=== PATIENT | female | born 2000 | race Caucasian/White ===

== ENCOUNTER 2019-09-13 13:59 | Emergency (ER) | payer OTHER ==
[~2019-09-13] VITALS: Ht 170.2 cm; Wt 60.8 kg
[2019-09-13] MEDS ORDERED: prenatal (14:07)
[2019-09-13] MEDS ORDERED: NS 1,000 ML IV ONE (14:30)
[2019-09-13] MEDS ORDERED: METOCLOPRAMIDE INJ 10MG/2ML VIAL (J2765) IV ONE (14:30)
[2019-09-13 14:57] LABS: BASO % 0.2 % (0.0-1.0); EOS % 0.1 % (0.0-3.0); HEMATOCRIT 35.5 % (36.0-47.0); HEMOGLOBIN 12.1 g/dl (12.0-15.5); LYMPH # 1.5 10^3/uL (1.5-5.0); LYMPH % 13.1 % (24.0-44.0); MEAN CORPUSCULAR HEMOGLOBIN 29.7 pg (27.0-33.0); MEAN CORPUSCULAR HGB CONC 34.1 g/dl (32.0-36.5); MEAN CORPUSCULAR VOLUME 87.2 fl (80.0-96.0); MONO # 0.5 10^3/uL (0.0-0.8); MONO % 4.3 % (0.0-5.0); NEUTROPHILS # 9.1 10^3/uL (1.5-8.5); NEUTROPHILS % 82.1 % (36.0-66.0); PLATELET COUNT, AUTOMATED 192 10^3/uL (150-450); RED BLOOD COUNT 4.07 10^6/uL (4.00-5.40)
--- NOTE | 2019-09-13 15:19 | REP ---
FIRST TRIMESTER ULTRASOUND: Real-time sonographic evaluation of the gravid uterus is performed. There is a single living intrauterine gestation, estimated gestational age is 8 weeks 6 days based on a crown-rump length of 22 mm, EDC 04/18/2020. heart rate 160 beats per minute. There is no subchorionic hemorrhage. Hypoechoic area in the right ovary measures 1.9 cm in diameter probably representing a corpus luteum. There is no right ovarian torsion. Left ovary is not visualized. Electronically Signed by Cesario Hoover MD 09/13/2019 06:21 P
[2019-09-13] MEDS ORDERED: ONDANSETRON 4MG/2ML VIAL (J2405) IV ONE (15:30)
[2019-09-13] MEDS ORDERED: ONDA4TAB6 PO (15:59)
[2019-09-13] MEDS ORDERED: REGL10TA6 PO (15:59)
[2019-09-13 16:15] VITALS: BP 125/72
== END 2019-09-13 16:17 | disposition home or self-care (01) ==
LOC: M ED 13:59
DX: O21.0 Mild hyperemesis gravidarum (principal); Z3A.08 8 weeks gestation of pregnancy; Z79.899 Other long term (current) drug therapy
CPT/HCPCS: 76801; 80047; 84702; 85025; 93976; 96361; 96374; 96375; 99284; J2405; J2765

== ENCOUNTER 2020-04-20 07:00 | Inpatient (IN) | payer OTHER ==
[2020-04-20] VITALS (20 sets, daily range): BP systolic 111–137; BP diastolic 57–80
[~2020-04-20] VITALS: Ht 170.2 cm; Wt 82.6 kg
[~2020-04-20 07:00] MED LIST: ONDA4TAB6 PO; REGL10TA6 PO; prenatal
[2020-04-20] MEDS ORDERED: PENICILLIN G POTASSIUM IV 5 MU in D5W MINI-BAG PLUS 100 ML IV STA (08:06)
[2020-04-20] MEDS ORDERED: LACTATED RINGER'S 1000 ML IV ONE (08:15)
[2020-04-20 08:25] LABS: HEMATOCRIT 33.8 % (36.0-47.0); HEMOGLOBIN 11.4 g/dl (12.0-15.5); MEAN CORPUSCULAR HEMOGLOBIN 31.1 pg (27.0-33.0); MEAN CORPUSCULAR HGB CONC 33.7 g/dl (32.0-36.5); MEAN CORPUSCULAR VOLUME 92.3 fl (80.0-96.0); PLATELET COUNT, AUTOMATED 160 10^3/uL (150-450); RED BLOOD COUNT 3.66 10^6/uL (4.00-5.40); WHITE BLOOD COUNT 9.5 10^3/uL (4.0-10.0)
--- NOTE | 2020-04-20 08:38 | HPEPDOC ---
Obstetrical History & Physical General Date of Admission Apr 20, 2020 at 07:41 Primary Care Physician: Dillan Raya MD History of Present Illness 04/20/2020 19 YO AT 39,5 WEEKS SROM CLEAR LIQUOR MILD CONTRACTIONS .RISK FACTORS ANEMIA GBS POSITIVE Chief Complaint: Rupture of membranes Information Provided By: Patient Age: 19 : 1 Term: 0 Care Care: Good Care Dating Final EDC: Apr 22, 2020 Final EDC for Daily Update: Apr 22, 2020 Final EDC by: 1st trimester (US) LMP: Jul 17, 2019 1st Trimester Date: Sep 13, 2019 Weeks + Days: 8.6 Estimated Date of Confinement: Apr 22, 2020 Past Medical History Past Obstetrical History : Past Obstetrical History: Primgravida [employer] History: No pertinent history Past Medical History Surgical History: Denies/None Family History Significant Family History: No pertinent family hx Social History Marital Status: Family situation: Spouse/partner home Psychosocial History: No pertinent psych hx * Smoker: non-smoker Alcohol: Denies Drugs: denies Abuse Violence Screening Have you been hit/kicked/slapp: No Have you been sexually assault: No Imunizations Tdap status: current Influenza Status: current Allergies Coded Allergies: No Known Allergies (Unverified , 04/20/20) Medications Miscellaneous Medications [ ] Physical Examination Physical Examination GENERAL: Alert and oriented times three. BREAST: . ABDOMEN: Gravid and non-tender to touch. FETUS: Is vertex (VTX) by sterile vaginal examination (SVE), fetus is vertex (VTX) by Eligio. HEART RATE: Regular rate and rhythm. LUNGS: Clear to auscultation NO WHEEZES NO RHONCHI EXTREMITIES: No edema. No clonus. Vital Signs/I&O Vital Signs Date Time Temp Pulse Resp B/P (MAP) Pulse Ox O2 Delivery O2 Flow Rate FiO2 04/20/20 07:16 97.7 78 18 120/70 (87) Laboratory Data 24H LABS Laboratory Tests 2 04/20/20 08:06: Serology Scanned Report Hepatitis B Testing Pertinent Laboratoy Data Blood Type: A+ RBC Antibody Screen: Negative HIV: Negative Hepatitis B: Negative Rapid Plasma Reagin: Nonreactive Rubella: Immune Varicella: Immune Chlamydia/Gonorrhea: Negative Group B Streptococcus: Positive Cystic Fibrosis: Negative Anatomy Ultrasound Placenta Location: Anterior Normal Anatomy: Yes Steroid Therapy Steroid Therapy: No Vaginal Examination Dilation: 3 cm Effacement: 60% Station: -3 Cervical Consistency: Soft Cervical Position: Posterior Presentation: Cephalic presentation Assessment Variability: Moderate Accelerations: Positive Decelerations: None Tocometer Contractions: Yes Frequency: every 1-5 min. Duration: less than 60 seconds Strength: palpated as mild Assessment/Plan Assessment 19 Y.O -year-old (G1 para (P0 at 39.5 weeks by 8.6 -week ultrasound. Presents to Labor and Delivery Plan Admit and orient. Pals Nurse and consent. Diet: REGULAR Group B Streptococcus (GBS POSITIVE Labs and intravenous (IV) per unit protocol. Counseled on Pitocin ARGUMENTATION Lactated Ringers (LR): Bolus 1000mL, then at 125 mL/hr. Anticipate [normal spontaneous delivery ()]. C-S as appropriate. Labor and Delivery Counseling 04/20/2020 EVALUATION CONFIRM SROM CLEAR POSITIVE NITRAZINE . PLAN OF CARE ANTIBIOTICS FOR GBS POSSIBLE REQUIRE ARGUMENTATION OF CONTRACTIONS RISK OF PITOCIN IS TACHYSYSTOLE, UTERUS RUPTURE NRFHT EMERGENCY CS ADMISSION NICU RISK CS HEMORRHAGE INFECTION PERFORATION REOPERATION REMOTE BLOOD TRANSFUSION REMOTE HYSTERECTOMY LIFE THREATENING BLEEDING RISK OF LACERATION HEMATOMA , SCRATCHES INTRACRANIAL BLEED , RISK VAGINAL DELIVERY ARE EPISIOTOMY, LACERATION TO BOWEL BLADDER SPHINCTER EXPRESSED UNDERSTANDING SAFE TO PROCEED CATEGORY 1 STRIP Dillan Raya MD Apr 20, 2020 08:36
[2020-04-20] MEDS ORDERED: MAPA500T2 PO (08:46)
[2020-04-20] MEDS ORDERED: OXYTOCIN DRIP 30 UNITS in IV 1 EA IV SCH (10:00)
[2020-04-20] MEDS ORDERED: BUTORPHANOL 2 MG/ML INJ (J0595) IV ONE (10:00)
[2020-04-20] MEDS ORDERED: PROMETHAZINE INJ 25 MG/ML VIAL (J2550) IV ONE (10:00)
[2020-04-20] MEDS: CALCIUM CARBONATE 500 MG CHEW U/D PO PRN ×2 (10:12→20:31)
--- NOTE | 2020-04-20 10:30 | IPNPDOC ---
Obstetrical Progress Note Date of Service Apr 20, 2020 Subjective Patient states pain with contractions, feeling tired adn having increased heartburn. Requesting pain medication and TUMS Objective Vital Signs Date Time Temp Pulse Resp B/P (MAP) Pulse Ox O2 Delivery O2 Flow Rate FiO2 04/20/20 07:16 97.7 78 18 120/70 (87) Assessment Heart Rate (FHR): 125 Variability: Moderate Accelerations: Positive Decelerations: None Heart Rate Tracing: Category I Tocometer Contractions: Yes Frequency: irregular (patient counseled on pitocin augmentation if contractions do not increase in strength and frequency.) Duration: greater than 60 seconds Strength: palpated as mild Sterile Vaginal Examination Postion/Presentation: Cephalic presentation Assessment and Plan Age: 19 : 1 Term: 0 Pre-term: 0 Abortions: 0 Livin EGA at Admission: 39 (+5) Status: Reassuring Group B Streptococcus: Positive Anticipate: Vaginal Delivery Additional Comments A:19yo lucas [id number] @39+5, complicated by gestational anemia, A+, GBS+, PROM clear at term P:lr@125ml/hr, continuous efm x2, continue gbs prophylaxis per protocol, monitor for change in or maternal status, 2mg stadol iv x1, 25mg phenergan iv x1, 1000mg tums chew po prn heartburn, consider pitocin augmentation at 6hr ROM if not actively laboring, evaluate for change as indicated, anticipate vaginal delivery MACK KATZ CNM Apr 20, 2020 10:30
[2020-04-20] MEDS: LR 1,000 ML IV SCH ×2 (10:54→14:34)
[2020-04-20] MEDS: PENICILLIN G POTASSIUM IV 2.5 MU in IV 1 EA IV SCH ×3 (13:25→20:00)
--- NOTE | 2020-04-20 14:36 | IPNPDOC ---
Obstetrical Progress Note Date of Service Apr 20, 2020 Subjective patient states minimal sleep on iv medications, states continued discomfort with contractions Objective Vital Signs Date Time Temp Pulse Resp B/P (MAP) Pulse Ox O2 Delivery O2 Flow Rate FiO2 04/20/20 12:47 98.9 85 16 121/73 (89) Assessment Heart Rate (FHR): 135 Variability: Moderate Accelerations: Positive Decelerations: None Heart Rate Tracing: Category I Tocometer Contractions: Yes (q6-7 min) Frequency: regular Duration: greater than 60 seconds Strength: palpated as moderate Assessment and Plan Age: 20 : 1 Term: 0 Pre-term: 0 Abortions: 0 Livin EGA at Admission: 39 (+5) Status: Reassuring Group B Streptococcus: Positive Anticipate: Vaginal Delivery Additional Comments 20yo lucas [id number] @39+5, A+, GBS+, PROM clear lr @125 ml/hr, continuous efm x2, continue GBS prophylaxis, initiate pitocin augmentation and titrate per protocol, monitor for change in pr maternal status, evaluate for change as indicated, anticipate vaginal delivery MACK KATZ CNM Apr 20, 2020 14:36
[2020-04-20] MEDS ORDERED: FENTANYL 2MCG/ML ROPIVACAINE 0.2% IN 0.9% NACL 100ML IVBAG As Ordered ONE (16:10)
[2020-04-20] MEDS ORDERED: diphenhydrAMINE 50MG/ML VIAL (J1200) IV PRN ×2 (17:45→21:08)
[2020-04-20] MEDS ORDERED: EPIDURAL/PCA KEYS XX PRN (17:45)
[2020-04-20] MEDS: FENTANYL/ROPIVACAINE/NACL BAG 100 ML EPIDURAL SCH (17:45)
[2020-04-20] MEDS ORDERED: EPIDURAL COMMENT XX SCH (17:45)
[2020-04-20] MEDS ORDERED: ONDANSETRON 4MG/2ML VIAL IV PRN ×3 (17:45→22:45)
[2020-04-20] MEDS ORDERED: ePHEDrine SULFATE 25 MG/5 ML(5MG/ML) SYRINGE IV PRN (17:45)
[2020-04-20] MEDS ORDERED: NALOXONE INJ 0.4MG/1ML VIAL (J2310 PER 1MG) IV PRN ×3 (17:45→21:08)
[2020-04-20] MEDS ORDERED: REFRIGERATOR IV KEYS XX PRN (17:45)
--- NOTE | 2020-04-20 18:52 | IPNPDOC ---
Obstetrical Progress Note Date of Service Apr 20, 2020 Subjective accepting care of this 20 yo G1 who was admitted this morning after SROM at 3 AM. She is in bed comfortable with epidural in place. FHT: 150, Min to moderate variabiliy, +accels, -Decels---cat I tracing SVE: 9/Complete/0 [place]: 4-5/10, pit @ 6 A/p 20 yo G1@ 39+5, BGS POS; adequately treated, PROM @ 0300. Now in active labor. Overal cat I Tracing with intermitted cat II due to minimal variability, overall reassuring. will continue induction of labor with pitocin per L&D protocol. Anticipate . Objective Vital Signs Date Time Temp Pulse Resp B/P (MAP) Pulse Ox O2 Delivery O2 Flow Rate FiO2 04/20/20 17:06 72 18 114/63 (80) 04/20/20 16:57 98.8 SHABBIR POWELL MD Apr 20, 2020 18:33
[2020-04-20] MEDS ORDERED: BICITRA 30ML SOLN UDC As Ordered ONE (20:26)
[2020-04-20] MEDS ORDERED: ceFAZolin 2 GM/D5W 50 ML IV BAG (J0690 PER 500MG) As Ordered ONE (20:26)
[2020-04-20] MEDS ORDERED: AZITHROMYCIN INJ 500MG VIAL (J0456 PER 500MG) As Ordered ONE (20:27)
[2020-04-20] MEDS ORDERED: MORPHINE PRES-FREE INJ 10 MG/10 ML VIAL (J2274) As Ordered ONE (20:29)
[2020-04-20] MEDS ORDERED: OXYTOCIN INJ 10 UNITS/ML VIAL (J2590) As Ordered ONE (20:31)
[2020-04-20] MEDS ORDERED: LIDOCAINE 2% W/EPINEPHRINE 20ML VIAL **PRES FREE As Ordered ONE (20:34)
[2020-04-20] MEDS ORDERED: ONDANSETRON 4MG/2ML VIAL As Ordered ONE (20:58)
[2020-04-20] MEDS ORDERED: METOCLOPRAMIDE INJ 10MG/2ML VIAL (J2765 PER 1) IV PRN ×2 (21:08→22:45)
[2020-04-20] MEDS ORDERED: NALBUPHINE HCL 10 MG/ML AMP (J2300) IV PRN (21:08)
[2020-04-20] MEDS ORDERED: dexameTHASONE 4 MG/ML 1ML VIAL (J1100 PER 1MG) As Ordered ONE (21:20)
[2020-04-20] MEDS ORDERED: PHENYLephrine HCL 500 MCG/5 ML (100MCG/ML) SYRINGE (J2370) As Ordered ONE (21:30)
[2020-04-20] MEDS ORDERED: KETOROLAC 60MG 2ML VIAL As Ordered ONE (21:49)
[2020-04-20] MEDS ORDERED: OXYTOCIN 30 UNITS IN 0.9% NaCl 500ML IV BAG (J2590) As Ordered ONE (21:49)
[2020-04-20] MEDS ORDERED: ONDANSETRON 4 MG TAB PO PRN (22:15)
[2020-04-20] MEDS ORDERED: MOM 30ML SUSPENSION UDC PO PRN (22:15)
[2020-04-20] MEDS ORDERED: ceFAZolin SOD 2 GM in IV 1 EA IV ONE (22:15)
[2020-04-20] MEDS ORDERED: BICITRA 30ML SOLN UDC PO ONE (22:15)
[2020-04-20] MEDS ORDERED: AZITHROMYCIN INJ 500 MG, VIAL MATE ADAPTER 1 EACH in D5W 250 ML IV ONE (22:15)
[2020-04-20] MEDS ORDERED: ANUSOL HC CREAM 30GM TOP PRN (22:15)
[2020-04-20] MEDS ORDERED: ACETAMINOPHEN 500 MG TAB PO PRN (22:15)
--- NOTE | 2020-04-20 22:43 | DNPDOC ---
[facility] Delivery Note Delivery Note DATE OF DELIVERY: 04/20/2020 PREDELIVERY DIAGNOSIS: 39-5/7 weeks' gestation and induction of labor, breech presentation, GBS positive POST DELIVERY DIAGNOSIS: Delivered, breech presentation PROCEDURE: section RECREATION ATTENDANT SUPERVISOR: Dr. Shabbir Powell ANESTHESIA: Epidural. ESTIMATED BLOOD LOSS: 600 mL. FINDINGS: 7pound 8 ounce female , Score 8/9, breech DELIVERY SUMMARY: 20 yo G1 @39+5 who was admitted for PROM and found to be breech presentation when she was complete. Short OP REPORT: Pfannenstiel incision, lower uterine transverse incision, delivery of female breech female infant with apgars of 8/9. manual placenta delivery. hysterotomy closure in two layers with 0-monocryl. fascia closure with 0-vicryl. subc closure with 2-0 vicryl running, skin clsoure with 3-0 monocryl on a kip needle. opti-foam dressing used. patient tolerated procedure without issues. SHABBIR POWELL MD Apr 20, 2020 22:34
[2020-04-20] MEDS ORDERED: LR 1,000 ML IV SCH (22:45)
[2020-04-20] MEDS ORDERED: fentaNYL 100 MCG/2 ML INJECTION (J3010) IV PRN (22:45)
[2020-04-20] MEDS ORDERED: MEPERIDINE INJ 25 MG/ML VIAL (J2175) IV PRN (22:45)
[2020-04-20] MEDS ORDERED: PERCOCET 5MG/325MG TAB PO PRN (22:45)
--- NOTE | 2020-04-20 23:18 | ROOPDOC ---
[facility] Report Of Operation Report of Operation DATE OF PROCEDURE: 04/20/20 PREPROCEDURE DIAGNOSES: BREECH PRESENTATION, PROM, GBS POSITIVE POSTPROCEDURE DIAGNOSES: SAME ABOVE. PROCEDURE: PRIMARY LOW TRANSVERSE SECTION. SURGEON: SHABBIR POWELL MD JOCKEY VALET: INDU SANTAMARIA RN ANESTHESIA: RIA HERRING CRNA. ESTIMATED BLOOD LOSS: Approximately 600 mL. COMPLICATIONS: NONE. REMARKS: NONE. PROCEDURE NOTE: DELIVERY SUMMARY: 20 yo G1 @39+5 who was admitted for PROM and found to be breech presentation when she was complete. Short OP REPORT: Pfannenstiel incision, lower uterine transverse incision, delivery of female breech female infant with apgars of 8/9. manual placenta delivery. hysterotomy closure in two layers with 0-monocryl. fascia closure with 0-vicryl. subc closure with 2-0 vicryl running, skin clsoure with 3-0 monocryl on a kip needle. opti-foam dressing used. patient tolerated procedure without issues. DESCRIPTION OF PROCEDURE: After proper consent was obtained, patient was taked to the OR and epidural anesthesia was found to be adequate. she was then prepped and draped in sterile fashion in the dorsosupine position with left tilt. A pfannenstiel skin incision was then made with a scalp and carried to the fascia. the fascia was incised in the midline and the incision was extended laterally bluntly. the superior aspect of the fascia was grasped with tano clamps, elevated amd the underlying rectus muscle dissected off bluntly. the lower aspect of the fascia was also grasped and the rectus muscles dissected off bluntly. The rectus muscles were then in the midline, the peritoneum identified and entered bluntly. the peritoneum incision was extended superiorly and laterally by manual traction with good visualization of the bladder. The Mobius retractor was then inserted and a bladder flap was made. the lower ut erine segment was then incised in a transverse fashion with the scalpel and the incision was extended bluntly superiorly with manual traction. the infant's buttocks ( presenting part) was elevated to the the hysterotomy and delivered and using the penard maneuver legs were delivered. the corps was placed in sterile towel and with the loveset/ penard maneuver delivered the arms. mauriceau smellie veit maneuver was then used to deliver the head. the cord was cut and female was then handed to the NICU team with apgars of 8/9 and 7lb8oz. The placenta was then delivery manually and the hysterotomy closed in two layers with o-Monocryl. great hemostasis was obtained. the uterine was returned in the abdomen and the gutters cleaned using moist laps. the Mobius retractor was then removed and again hemostasis checked and fount to be satisfactory. Fascia was then closed with 0-vicryl and running fashion. the subc was closed with 2-0 vicryl in a running fashion. the skin was then closed with 3-0 monocryl on a kip needle. the opt foam was used for dressing. Patient tolerated procedure well and was taken to the PACU in stable condition. SHABBIR POWELL MD Apr 20, 2020 23:18
--- NOTE | 2020-04-20 23:25 | IPNPDOC ---
Obstetrical Progress Note Date of Service Apr 20, 2020 Subjective late entry due to patient care patient seen @ 1945 to room for assessment as patient is feeling more pelvic pressure. on exam found to be c/c/+1, found to be breech via US, Head to fundus. Discussed with patient that I recommand C/D for breech presentation. she expressed understanding and agrees with plan. will order 2g Ancef and 500mg azithromycin medical social consultant to the OR Objective Vital Signs Date Time Temp Pulse Resp B/P (MAP) Pulse Ox O2 Delivery O2 Flow Rate FiO2 04/20/20 23:16 70 95 04/20/20 23:15 120/56 (77) 04/20/20 22:42 98.9 04/20/20 22:08 16 Room Air SHABBIR POWELL MD Apr 20, 2020 23:25
[2020-04-21] VITALS (9 sets, daily range): BP systolic 112–127; BP diastolic 57–68
[2020-04-21] MEDS: oxyCODONE 5MG TAB PO PRN ×4 (02:16→22:37)
[2020-04-21] MEDS: KETOROLAC 30 MG/ML 1ML VIAL IV SCH ×3 (04:03→15:50)
[2020-04-21] MEDS: LR 1,000 ML IV SCH ×2 (07:29→15:49)
[2020-04-21] MEDS: FENTANYL/ROPIVACAINE/NACL BAG 100 ML EPIDURAL SCH (07:29)
[2020-04-21] MEDS: PENICILLIN G POTASSIUM IV 2.5 MU in IV 1 EA IV SCH ×3 (07:29→15:49)
[2020-04-21 07:55] LABS: HEMATOCRIT 30.4 % (36.0-47.0); HEMOGLOBIN 10.2 g/dl (12.0-15.5); MEAN CORPUSCULAR HEMOGLOBIN 31.4 pg (27.0-33.0); MEAN CORPUSCULAR HGB CONC 33.6 g/dl (32.0-36.5); MEAN CORPUSCULAR VOLUME 93.5 fl (80.0-96.0); PLATELET COUNT, AUTOMATED 138 10^3/uL (150-450); RED BLOOD COUNT 3.25 10^6/uL (4.00-5.40)
--- NOTE | 2020-04-21 07:58 | IPNPDOC ---
Progress Note Date of Service: Apr 21, 2020 Day#: 1 Progress Note SUBJECT: 20-year-old 1 now Para 1 POD1 status post PLTCD for breech presentation 39-5/7 weeks' at approximately 2300 hours on 20 apr 2020 of a female 7 pounds 8 ounces (3010 grams) , doing well . she has ambulated without issues. she has a espinal in place and has good UOP. has started Breast feeding without issue. OBJECTIVE: VITAL SIGNS: BP: 120/56, HR 73 RR 16, afebrile. Alert and oriented times three. Breath sounds clear to auscultation. Heart rate: Regular rate and rhythm, no murmurs, rubs or gallops. Abdomen: Fundus firm at U-2. Soft, NTTP. ASSESSMENT: 20-year-old 1 now Para 1 POD1 status post PLTCD for breech presentation 39-5/7 weeks' at approximately 2300 hours on 20 apr 2020 of a female 7 pounds 8 ounces (3010 grams) , doing well . Vitals within normal limits, afebrile, hemodynamically stable with no evidence of infection.no SI/HI Preop H/H: 11.4/33.8 EBL 600ml, Post OP H/H: Pending PLAN: 1. Continue Inpatient admission 2. Tylenol, toradol and oxycodone then transition to motrin, tylenol and oxycodone after 24hrs 3. Encourage breast feeding and ambulation. 4. Liked her OCP for contraception. can start after 40 days to allow milk establishment and wait until the VTE risk has declined. 5. Routine PP visit in 2 and 6 weeks in clinic. 6. Discussed return precautions at length. VS, I&O, 24H, Fishbone Vital Signs/I&O Vital Signs Date Time Temp Pulse Resp B/P (MAP) Pulse Ox O2 Delivery O2 Flow Rate FiO2 04/21/20 03:00 16 Room Air 04/20/20 23:16 70 95 04/20/20 23:15 120/56 (77) 04/20/20 22:42 98.9 I&O- Last 24 Hours up to 6 AM 04/21/20 05:59 Intake Total 5030.6 ml Output Total 2000 ml Balance 3030.6 ml Laboratory Data 24H LABS Laboratory Tests 2 04/20/20 08:00: Nucleated Red Blood Cells % (auto) 0.0, Syphilis Serology NONREACTIVE 04/20/20 08:06: Serology Scanned Report Hepatitis B Testing CBC/BMP Laboratory Tests 04/20/20 08:00 SHABBIR POWELL MD Apr 21, 2020 07:51
[2020-04-21] MEDS: DOCUSATE SODIUM 100 MG CAP PO SCH ×2 (08:19→20:38)
[2020-04-22] MEDS: IBUPROFEN 800 MG TAB PO SCH ×3 (00:57→16:28)
[2020-04-22 02:00] VITALS: BP 109/55
[2020-04-22 06:05] VITALS: BP 109/54
[2020-04-22] MEDS: DOCUSATE SODIUM 100 MG CAP PO SCH ×2 (08:41→21:00)
[2020-04-22] MEDS ORDERED: DOCU100C16 PO (12:35)
[2020-04-22] MEDS ORDERED: OXYC-517 PO (12:35)
[2020-04-22] MEDS ORDERED: IBUP80TA PO (12:35)
[2020-04-22] MEDS: oxyCODONE 5MG TAB PO PRN (17:18)
[2020-04-22 18:00] VITALS: BP 101/59
--- NOTE | 2020-04-24 07:10 | DS ---
DATE OF ADMISSION: 04/20/2020 DATE OF DISCHARGE: 04/22/2020 This lady is a 20-year-old 1 now para 1 admitted with spontaneous rupture of membranes with contractions at 39 and 5 weeks of gestation. Had a primary section for nicolas breech presentation; female infant, 7 pounds 8 ounces, Apgars of 8 and 9 at one and five minutes respectively. She had an epidural prior to her delivery. She was GBS positive, treated appropriately. She does have longstanding anemia. Admitting hemoglobin was 11.4, hematocrit 33.8 and platelets were 160; discharge hemoglobin was 10.2, hematocrit 30.4 and platelets were 138. Vital signs on discharge: Blood pressure 109/54, respirations 18, pulse 77, temperature is 97.8. The rest of the examination is unremarkable. Normocephalic, atraumatic. Neck: Full range of motion. Pupils equal and reactive to light. Distal pulses symmetric. No evidence of deep vein thrombosis (DVT), pulmonary embolus (PE) or superficial phlebitis. Chest is clear bilaterally to the bases; no wheezes or rhonchi. No CVA tenderness. Abdomen was soft, four-quadrant bowel sounds are noted. Incision is clean and dry. Uterus is 2 below; perineum is intact. There are no complaints of cough, wheeze, shortness of breath or dyspnea on exertion. No nausea, vomiting, diarrhea of constipation. No urgency or frequency. Presently getting along well with her pain meds as well as her breast feeding is comfortable for discharge; is passing gas; no evidence of distention or abdominal cramps or abdominal pain. In summary, term gestation, delivered a live- female . Plans are to worm picker medications at [place], two-week incision check, six-week check [place] [facility]. All questions were answered; 20-minute discussion. Patient was discharged improved. MANNIE
== END 2020-04-22 21:55 | disposition home or self-care (01) | DRG 806 ==
LOC: M LDO 07:00 → M LDI 07:41 → M OBS 23:32
PROVIDERS: ADMIT Obstetrics & Gynecology; ATTEND Obstetrics & Gynecology
PROC: 10E0XZZ Delivery of Products of Conception, External Approach (ICD-10-PCS; 2020-04-20)
PROC: 10D17Z9 Manual Extraction of Products of Conception, Retained, Via Natural or Artificial Opening (ICD-10-PCS; principal; 2020-04-20 21:24)
DX: O32.1XX0 Maternal care for breech presentation, not applicable or unspecified (principal); Z37.0 Single live birth; O72.0 Third-stage hemorrhage; Z3A.39 39 weeks gestation of pregnancy; D64.9 Anemia, unspecified; O99.02 Anemia complicating childbirth; O42.02 Full-term premature rupture of membranes, onset of labor within 24 hours of rupture; O99.824 Streptococcus B carrier state complicating childbirth